=== PATIENT | female | born 2000 ===

== ENCOUNTER 2023-08-20 13:07 | Emergency (ER) | payer SELFPAY ==
[2023-08-20] MEDS: Sodium Chloride 0.9% 1,000 ML IV ONE (14:25)
[2023-08-20] MEDS: Sodium Chloride 0.9% 10 ML Syringe FLUSH PRN (14:25)
[2023-08-20] MEDS: Ondansetron 4 MG/2 ML SDV IVPUSH ONE (14:33)
[2023-08-20 15:17] LABS: BASOPHILS PERCENT AUTO 0.2 % (0.2-1.5); EOSINOPHILS PERCENT AUTO 0.2 % (0.6-8.1); HEMATOCRIT 32.7 % (34.2-48.2); HEMOGLOBIN 10.6 g/dL (11.4-15.5); LYMPHOCYTES PERCENT AUTO 12.3 % (18.4-52.1); MEAN CORPUSCULAR HEMOGLOBIN 24.3 pg (23.9-33.9); MEAN CORPUSCULAR HGB CONC 32.5 g/dL (31.9-34.8); MEAN PLATELET VOLUME 8.2 fL (7.1-12.4); MONOCYTES ABSOLUTE AUTO 0.3 x10-3/uL (0.3-1.0); MONOCYTES PERCENT AUTO 4.1 % (4.4-15.7); NEUTROPHILS ABSOLUTE AUTO 6.7 x10-3/uL (1.5-6.3); NEUTROPHILS PERCENT AUTO 83.2 % (30.8-76.2); PLATELET COUNT,PLT 340 x10(3)uL (151-488); RED BLOOD CELL COUNT 4.36 x10(6)uL (3.60-5.20); RED CELL DISTRIBUTION WIDTH 16.4 % (12.3-16.5)
[2023-08-20 15:24] LABS: A/G RATIO 0.8; ALANINE AMINOTRANSFERASE,ALT 40 U/L (12-36); ALBUMIN 3.5 g/dL (3.5-5.2); ALKALINE PHOSPHATASE 60 IU/L (56-112); ASPARTATE AMNIOTRANSFERASE,AST 28 IU/L (5-25); BILIRUBIN TOTAL 1.1 mg/dL (0.1-1.3); BLOOD UREA NITROGEN,BUN 6 mg/dL (7-18); CALCIUM 8.3 mg/dL (8.6-10.2); CARBON DIOXIDE,CO2 27 mmol/L (21-32); CHLORIDE,CL 101 mmol/L (100-110); CREATININE 0.5 mg/dL (0.55-1.02); EST CRCL DRUG DOSING (CG) 130.92 mL/min; ESTIMATED GFR 134 mL/min (>60); GLUCOSE RANDOM 107 mg/dL (80-116); MAGNESIUM 1.5 mg/dL (1.8-2.5); PROTEIN TOTAL,TP 7.7 g/dL (6.0-8.0); SODIUM,NA 136 mmol/L (135-145)
[2023-08-20 15:30] LABS: POTASSIUM,K 2.8 mmol/L (3.5-5.3)
[2023-08-20] MEDS: Potassium Chloride 20 MEQ Tab.ER PO ONE (16:09)
[2023-08-20] MEDS: Potassium Chloride 10 MEQ in Premix Bag 1 BAG IV ONE (16:09)
[2023-08-20] MEDS: Sodium Chloride 0.9% 1,000 ML IV SCH (16:10)
== END 2023-08-20 17:45 | disposition home or self-care (01) ==
LOC: FB.ED 13:07
DX: E87.6 Hypokalemia (principal); E83.42 Hypomagnesemia; E86.0 Dehydration; R19.7 Diarrhea, unspecified; Z72.0 Tobacco use; Z20.822 Contact with and (suspected) exposure to COVID-19
CPT/HCPCS: 36415; 80053; 81025; 83690; 83735; 85025; 86140; 96361; 96365; 96375; 99284-25; A9270-GY; J2405; J3480; J3490; J7030; U0002

== ENCOUNTER 2025-04-02 07:54 | Emergency (ER) | payer SELFPAY ==
[2025-04-02 08:52] LABS: BASOPHILS ABSOLUTE AUTO 0.1 x10-3/uL (0.0-0.1); BASOPHILS PERCENT AUTO 0.9 % (0.2-1.5); EOSINOPHILS ABSOLUTE AUTO 0.1 x10-3/uL (0.0-0.8); EOSINOPHILS PERCENT AUTO 1.2 % (0.6-8.1); LYMPHOCYTES ABSOLUTE AUTO 1.4 x10-3/uL (1.0-4.4); LYMPHOCYTES PERCENT AUTO 16.6 % (18.4-52.1); MEAN PLATELET VOLUME 8.2 fL (7.1-12.4); MONOCYTES ABSOLUTE AUTO 0.4 x10-3/uL (0.3-1.0); MONOCYTES PERCENT AUTO 4.9 % (4.4-15.7); NEUTROPHILS ABSOLUTE AUTO 6.4 x10-3/uL (1.5-6.3); NEUTROPHILS PERCENT AUTO 76.4 % (30.8-76.2); PLATELET COUNT,PLT 372 x10(3)uL (151-488); RED BLOOD CELL COUNT 4.70 x10(6)uL (3.60-5.20); RED CELL DISTRIBUTION WIDTH 17.5 % (12.3-16.5); WHITE BLOOD CELL COUNT,WBC 8.4 x10-3/uL (3.0-10.3)
[2025-04-02 09:00] LABS: BLOOD UREA NITROGEN,BUN 8 mg/dL (7-18); CARBON DIOXIDE,CO2 27 mmol/L (21-32); CHLORIDE,CL 99 mmol/L (100-110); CREATININE 0.6 mg/dL (0.55-1.02); ESTIMATED GFR 128 mL/min (>60); GLUCOSE RANDOM 103 mg/dL (80-116); POTASSIUM,K 3.5 mmol/L (3.5-5.3); SODIUM,NA 134 mmol/L (135-145)
[2025-04-02 09:06] LABS: A/G RATIO 0.9; ALANINE AMINOTRANSFERASE,ALT 20 U/L (12-36); ASPARTATE AMNIOTRANSFERASE,AST 21 IU/L (5-25); BILIRUBIN TOTAL 0.8 mg/dL (0.1-1.3); PROTEIN TOTAL,TP 8.4 g/dL (6.0-8.0)
[2025-04-02 09:42] LABS: APPEARANCE,URINE CLEAR (CLEAR); GLUCOSE,URINE NORMAL (NORMAL); OCCULT BLOOD,URINE NEGATIVE (NEGATIVE)
== END 2025-04-02 10:43 | disposition home or self-care (01) ==
LOC: FB.ED 07:54
DX: T67.9XXA Effect of heat and light, unspecified, initial encounter (principal); R55 Syncope and collapse; E86.0 Dehydration; F17.200 Nicotine dependence, unspecified, uncomplicated; Z79.899 Other long term (current) drug therapy
CPT/HCPCS: 36415; 80053; 81003; 81025; 83735; 85025; 93005; 93010; 99284